=== PATIENT | female | born 1955 | race Caucasian/White ===

== ENCOUNTER 2020-03-01 13:45 | Outpatient (CLI) | payer MEDICARE, SELFPAY ==
--- NOTE | 2020-03-01 13:55 | US_ITS ---
WS: [id number] LEFT DIGITAL MAMMOGRAPHY WITH CAD CLINICAL INFORMATION: ABNORMAL MAMMOGRAM LT BREAST COMPARISON: Outside examination January 12, 2020 and prior examination . Prior examination TECHNIQUE: 4 views of the left breast were obtained. FINDINGS: Scattered fibroglandular densities of the left breast. Punctate and lucent centered calcifications. V ascular calcifications. Faint asymmetric density inner left breast measuring 4 mm is unchanged. Ultra sound is pending. ULTRASOUND BREAST LEFT TECHNIQUE: Ultrasound left breast focused area of concern. CLINICAL INFORMATION: ABNORMAL MAMMOGRAM LT BREAST COMPARISON: None. FINDINGS: Ultrasound left breast at the 9:00 position 3 cm from the nipple. Multiple small hypoechoic cystic le sions are visualized. These are well circumscribed with through transmission and have a benign appear ance. No suspicious findings to target for biopsy. US/US breast LT limited* [id number] BI-RADS: 2-Benign FOLLOW UP: 1 Year Follow-up Recommend return to annual screening mammography.
== END 2020-03-01 13:46 | disposition home or self-care (01) ==
LOC: RADSHAW 13:53
PROVIDERS: Family Provider Family Medicine; PCP Family Medicine; Visit Provider Family Medicine
DX: R92.8 Other abnormal and inconclusive findings on diagnostic imaging of breast (principal)
CPT/HCPCS: 76642; 77065

== ENCOUNTER → 2021-07-25 15:29 | Outpatient (BNVA) | payer MEDICARE, SELFPAY | PROVIDERS: Family Provider Family Medicine; PCP Family Medicine; Visit Provider Internal Medicine Cardiovascular Disease | DX: R55 Syncope and collapse (principal); E11.9 Type 2 diabetes mellitus without complications; Z79.4 Long term (current) use of insulin; Z79.84 Long term (current) use of oral hypoglycemic drugs; E78.5 Hyperlipidemia, unspecified; R01.1 Cardiac murmur, unspecified; R06.02 Shortness of breath; Z87.891 Personal history of nicotine dependence; I49.8 Other specified cardiac arrhythmias | CPT/HCPCS: 93005; 93270; 99204; 99205 ==

== ENCOUNTER 2021-09-10 12:46 | Outpatient (CLI) | payer MEDICARE, SELFPAY ==
--- NOTE | 2021-09-10 13:30 | USCV_ITS ---
[place] Age: 66 Gender: F : 1955 Exam Date: 09/10/2021 13:09 Ordering Phys: Zhou Phillip MD ([email or web address]) Technologist: Xi Willett Exam Location: [facility] [place] Indication: SOB, murmur BP: 126 / 71 HR: 60 Rhythm: Sinus Technical Quality: Fair MEASUREMENTS (Male / Female) Normal Values 2D ECHO LV Diastolic Diameter PLAX 3.6 cm 4.2 - 5.9 / 3.9 - 5.3 cm LV Systolic Diameter PLAX 1.9 cm IVS Diastolic Thickness 1.3 cm 0.6 - 1.0 / 0.6 - 0.9 cm IVS Systolic Thickness 1.8 cm LVPW Diastolic Thickness 1.3 cm 0.6 - 1.0 / 0.6 - 0.9 cm LVPW Systolic Thickness 1.8 cm LVOT Diameter 2.0 cm LV Ejection Fraction 2D Teich 79.2 % LV Ejection Fraction MOD 2C 82.2 % LV Ejection Fraction 2C AL 82.8 % LA Diameter 3.1 cm LA Width 2.6 cm LA Height 5.5 cm RA Width 3.1 cm RA Height 5.4 cm IVC Diameter 2.3 cm DOPPLER AV Peak Velocity 248.5 cm/s LVOT Peak Velocity 122.0 cm/s AV Area Cont Eq vti 1.7 cm squared AV Area Cont Eq pk 1.5 cm squared MV Peak Velocity 72.0 cm/s MV Area PHT 2.4 cm squared Mitral E to A Ratio 0.9 MV E' Velocity 31.5 cm/s Mitral E to MV E' Ratio 12.2 Mitral E to LV E' Lateral Ratio 10.2 Mitral E to LV E' Septal Ratio 15.1 TR Peak Velocity 100.3 cm/s TR Peak Gradient 4.0 mmHg Right Atrial Pressure 3.0 mmHg Pulmonary Artery Systolic Pressu 7.0 mmHg PV Peak Velocity 90.0 cm/s RV Acceleration Time 0.1 s FINDINGS Left Ventricle Normal left ventricular size and systolic function, EF 75 %. Mild left ventricular hypertrophy. Grade I/IV diastolic dysfunction (abnormal relaxation filling pattern), normal to mildly elevated filling pressures. Right Ventricle The right ventricle is normal in size and function. Right Atrium The right atrium is normal in size. Left Atrium The left atrium is normal in size. Mitral Valve No gross abnormalities noted Aortic Valve Thickened aortic valve. Mild aortic valve stenosis, mean gradient 10.9 mmHg, ANGELA 1.7 cm squared. The peak velocity was 2.51 m/s Tricuspid Valve Trace tricuspid valve regurgitation. Estimated pulmonary artery peak systolic pressure 7 mmHg Pulmonic Valve No gross abnormalities noted Pericardium Normal pericardium without effusion. Aorta Normal aortic annulus size. IVC IVC was not well visualized CONCLUSIONS Normal left ventricular size and systolic function, EF 75 %. Mild left ventricular hypertrophy. Grade I/IV diastolic dysfunction (abnormal relaxation filling pattern), normal to mildly elevated filling pressures. Mild aortic valve stenosis, mean gradient 10.9 mmHg, ANGELA 1.7 cm squared. The peak velocity was 2.51 m/s. Trace tricuspid valve regurgitation. Estimated pulmonary artery peak systolic pressure 7 mmHg. There is no pericardial effusion. There are no intracardiac masses. No similar previous studies are available for comparison Dr Zhou Phillip MD FACC (Electronically Signed) Final Date: 12 September 2021 08:31 S
--- NOTE | 2021-09-10 13:42 | XR_ITS ---
WS: [id number] Left foot, 3 views, 09/10/2021. Clinical Data: L FOOT PAIN/HX OF FALLING Comparison: Left foot, 10/14/2006. Findings: There is a fracture of the base of the proximal phalanx of the left fifth toe. There is decrease in d ensity at the base of the left third toe proximal phalanx which may be from surgery. There is osteoar thritic irregularity of the head of the left second metatarsal. There is internal fixation of old medial and lateral malleolar fractures. XR/XR foot LT min 3V* [id number] Impression: 1. Fracture of the left fifth toe proximal phalanx. 2. Possible surgery base of left third toe proximal phalanx. 3. 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 4. Old internal fixation of bimalleolar fracture of the left ankle.
== END 2021-09-10 12:47 | disposition home or self-care (01) ==
LOC: RAD 12:47
PROVIDERS: Family Provider Family Medicine; PCP Family Medicine; Visit Provider Internal Medicine Cardiovascular Disease
DX: R01.1 Cardiac murmur, unspecified (principal); R06.00 Dyspnea, unspecified; M79.672 Pain in left foot
CPT/HCPCS: 73630; 93306

== ENCOUNTER → 2021-09-19 12:32 | Outpatient (BNVA) | payer MEDICARE, SELFPAY | PROVIDERS: Family Provider Family Medicine; PCP Family Medicine; Referring Provider Registered Nurse; Visit Provider Podiatrist Foot & Ankle Surgery | DX: L97.522 Non-pressure chronic ulcer of other part of left foot with fat layer exposed (principal); E11.42 Type 2 diabetes mellitus with diabetic polyneuropathy; M20.41 Other hammer toe(s) (acquired), right foot; M20.42 Other hammer toe(s) (acquired), left foot; S92.502A Displaced unspecified fracture of left lesser toe(s), initial encounter for closed fracture; W19.XXXA Unspecified fall, initial encounter | CPT/HCPCS: 11042; 28510; 73630; 99204 ==

== ENCOUNTER → 2021-10-10 14:51 | Outpatient (BNVA) | payer MEDICARE, SELFPAY | PROVIDERS: Family Provider Family Medicine; PCP Family Medicine; Visit Provider Podiatrist Foot & Ankle Surgery | DX: S92.502D Displaced unspecified fracture of left lesser toe(s), subsequent encounter for fracture with routine healing (principal); X58.XXXD Exposure to other specified factors, subsequent encounter; E11.621 Type 2 diabetes mellitus with foot ulcer; M20.41 Other hammer toe(s) (acquired), right foot; M20.42 Other hammer toe(s) (acquired), left foot; L97.522 Non-pressure chronic ulcer of other part of left foot with fat layer exposed; E11.42 Type 2 diabetes mellitus with diabetic polyneuropathy | CPT/HCPCS: 99214 ==

== ENCOUNTER → 2021-10-29 15:04 | Outpatient (BNVA) | payer MEDICARE, SELFPAY | PROVIDERS: Family Provider Family Medicine; PCP Family Medicine; Visit Provider Internal Medicine Cardiovascular Disease | DX: R55 Syncope and collapse (principal); I10 Essential (primary) hypertension; R01.1 Cardiac murmur, unspecified; R06.02 Shortness of breath; E78.5 Hyperlipidemia, unspecified; G47.33 Obstructive sleep apnea (adult) (pediatric); E11.9 Type 2 diabetes mellitus without complications; Z79.4 Long term (current) use of insulin; Z87.891 Personal history of nicotine dependence | CPT/HCPCS: 99214 ==

== ENCOUNTER → 2025-02-10 09:17 | Outpatient (BNVA) | payer MEDICARE, SELFPAY | PROVIDERS: Family Provider Family Medicine; PCP Family Medicine; Visit Provider Dermatology | DX: L23.9 Allergic contact dermatitis, unspecified cause (principal); L21.8 Other seborrheic dermatitis; L30.4 Erythema intertrigo; L85.3 Xerosis cutis; L89.899 Pressure ulcer of other site, unspecified stage; Z71.3 Dietary counseling and surveillance | CPT/HCPCS: 99204 ==